=== PATIENT | male | born 1960 | race Caucasian/White ===

== ENCOUNTER 2018-03-01 18:48 | Emergency (ER) | payer SELFPAY ==
[2018-03-01 19:03] VITALS: BP 131/86
--- NOTE | 2018-03-02 03:57 | ED ---
Quinten Ashraf Jennifer, scribed for Judd Bauman MD on 03/01/18 at 1937 . Head Injury - HPI Summary HPI Summary: The patient is a 57 year old male who presents with head injury that began about 4.5 hours ago. 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 He denies LOC, vomiting, problems with vision or balance, chest pain, shortness of breath, neck pain, head soreness, or head lumps. He states that he saw stars but denies any symptoms in the ED. - History Of Current Complaint Chief Complaint: EDHeadInjury Stated Complaint: HEAD INJURY Time Seen by Provider: 03/01/18 19:16 Hx Obtained From: Patient Mechanism Of Injury: Other - Multiple boxes fell on his head while unloading truck at work Onset/Duration: Started Hours Ago - 4.5 hours, Resolved Onset of Pain: Immediate Severity Currently: None Severity Initially: Mild Pain Intensity: 1 Pain Scale Used: 0-10 Numeric Location of Head Injury: Diffuse Location: Diffuse Associated Signs And Symptoms: Negative - LOC, vomiting, problems with vision or balance, chest pain, shortness of breath, neck pain, head soreness, or head lumps. - Allergies/Home Medications Allergies/Adverse Reactions: Allergies Allergy/AdvReac Type Severity Reaction Status Date / Time No Known Allergies Allergy Verified 03/01/18 19:03 PMH/Surg Hx/FS Hx/Imm Hx Cardiovascular History: Denies: Hx Hypercholesterolemia, Hx Hypertension Neurological History: Reports: Hx CVA Infectious Disease History: No Infectious Disease History: Denies: Traveled Outside the [place] in Last 30 Days - Family History Known Family History: Negative: Renal Disease - Social History Occupation: Employed Full-time Alcohol Use: None Substance Use Type: Reports: None Smoking Status (MU): Current Every Day Smoker Review of Systems Negative: Blurred Vision Negative: Chest Pain Negative: Shortness Of Breath Negative: Vomiting Negative: Myalgia - neck pain, head soreness, head lumps Neurological: Negative - LOC All Other Systems Reviewed And Are Negative: Yes Physical Exam - Summary Physical Exam Summary: Appearance: Well appearing, no pain distress Skin: warm, dry, reflects adequate perfusion Head/face: normal Eyes: EOMI, CED ENT: normal Neck: supple, non-tender Respiratory: CTA, breath sounds present Cardiovascular: RRR, pulses symmetrical Abdomen: non-tender, soft Bowel Sounds: present Musculoskeletal: normal, strength/ROM intact Neuro: normal, sensory motor intact, A&Ox3 Triage Information Reviewed: Yes Vital Signs On Initial Exam: Initial Vitals Temp Pulse Resp BP Pulse Ox 99.1 F 68 18 131/86 95 03/01/18 18:53 03/01/18 18:53 03/01/18 18:53 03/01/18 18:53 03/01/18 18:53 Vital Signs Reviewed: Yes Diagnostics - Vital Signs Vital Signs Temp Pulse Resp BP Pulse Ox 03/01/18 18:53 99.1 F 68 18 131/86 95 - Laboratory Lab Statement: Any lab studies that have been ordered have been reviewed, and results considered in the medical decision making process. Head Injury Course/Dx Course Of Treatment: Patient sent from outside very [facility] for concern for possible CAT scan. The patient has absolutely no symptoms now after 4-1/2 hours post injury. He has no headache no alteration of consciousness and no concussive symptoms. He has no outward sign of trauma to his head. There is no abrasions elsewhere in his body either. With shared decision-making we have decided to not perform CT. He will follow up with primary care physician. - Diagnoses Differential Diagnosis/HQI/PQRI: Concussion With LOC, Concussion Without LOC, Contusion, Intracranial Bleed Provider Diagnoses: Closed head injury without loss of consciousness Discharge - Sign-Out/Discharge Documenting (check all that apply): Discharge/Admit/Transfer - Discharge Plan Condition: Good Disposition: HOME Patient Education Materials: Head Injury (ED) Referrals: No Primary Care Phys,NOPCP [Primary Care Provider] - Additional Instructions: Follow up as directed by your employer with Worker's Compensation doctor. If not provided, follow up with your doctor in 1-2 days if having any symptoms or as needed if no symptoms. Return with significant headache, vomiting, difficulty with balance, numbness or weakness, difficulty with focus, difficulty with vision, worse or other concerns. - Billing Disposition and Condition Condition: STABLE Disposition: HOME The documentation as recorded by the Quinten daniels Jennifer accurately reflects the service I personally performed and the decisions made by , Judd Bauman MD.
== END 2018-03-01 19:37 | disposition home or self-care (01) ==
LOC: ED 18:48
DX: S09.90XA Unspecified injury of head, initial encounter (principal); W22.8XXA Striking against or struck by other objects, initial encounter; Y92.512 Supermarket, store or market as the place of occurrence of the external cause; F17.200 Nicotine dependence, unspecified, uncomplicated
CPT/HCPCS: 99282